=== PATIENT | male | born 1955 | race Caucasian/White ===

== ENCOUNTER → 2016-07-17 | Outpatient (CLI) | payer BC ==
[~2016-07-17] MED LIST: ATORVASTATIN CA40 MG PO; HYDROCODONE/ACE1 TA8 PO; NORCO 325 MG-51 TAB PO
== END ==
LOC: LAB 08:11
DX: R00.0 Tachycardia, unspecified (principal); E78.5 Hyperlipidemia, unspecified; R07.89 Other chest pain

== ENCOUNTER 2017-06-04 09:50 | Emergency (ER) | payer BC ==
[~2017-06-04] VITALS: Ht 193 cm; Wt 90.7 kg
--- OUTSIDE RECORDS SUMMARY | 2017-06-04 09:53 | External Medical Summary Rpt | CCD ---
Author Author [facility] Organization [facility] Address Unknown Phone Unavailable Purpose Continuity of Care Document - through 2016
--- OUTSIDE RECORDS SUMMARY | 2017-06-04 09:53 | External Medical Summary Rpt | CCD ---
Demographics Preferred Language Macedonian Marital Status Unknown Worship Affiliation Unknown Race Unknown Ethnic Group Unknown Author Author , ANDREE HIGH Address Unknown Phone Immunization No patient found.
--- OUTSIDE RECORDS SUMMARY | 2017-06-04 09:53 | External Medical Summary Rpt | CCD ---
Author Author , ANILA HIGH Address Unknown Phone [email or web address] Purpose Continuity of Care Document - through 2016 Problems Code Diagnosis DOS Provider Status K80.20 CALCULUS OF GALLBLADDER W/O CHOLECYSTIT IS W/O OBSTRUCTION
--- OUTSIDE RECORDS SUMMARY | 2017-06-04 09:53 | External Medical Summary Rpt | CCD ---
Author Author , ANILA HIGH Address Unknown Phone [email or web address] Purpose Continuity of Care Document - through 2016 Problems Code Diagnosis DOS Provider Status K80.20 CALCULUS OF GALLBLADDER W/O CHOLECYSTIT IS W/O OBSTRUCTION
--- OUTSIDE RECORDS SUMMARY | 2017-06-04 09:53 | External Medical Summary Rpt | CCD ---
Demographics Preferred Language Irish Marital Status Unknown Yarsanism Affiliation Unknown Race Unknown Ethnic Group Unknown Author Author , ANDREE HIGH Address Unknown Phone Immunization No patient found.
[2017-06-04] MEDS ORDERED: CLARITIN 10MG T10 MG PO (10:13)
[2017-06-04] MEDS ORDERED: FLONASE ALLERG9.9 ML NS (10:13)
[2017-06-04 10:14] VITALS: BP 124/79
--- NOTE | 2017-06-04 10:14 | Urgent Treatment Center Report ---
History of Present Issue Date/Time Seen by Provider 06/04/17 1009 Visit Reason Pt arrived:Walked Presenting Problem:PT C/O SINUS DRAINAGE AND CONGESTION. Location if Accident: Onset of symptoms date/time:/ or onset unknown for:MEDICAL HX UNKNOWN Have you (or family members/close friends) recently traveled outside the [place]? N If Yes, where/when: Have you had exposure to infectious disease within the past month? TB? Other? Specify: Source patient, RN notes reviewed Exam Limitations no limitations Comment 62-year-old male presents today for sinus pressure clear nasal drainage and coughing up clear sputum. Patient denies fever or body aches. Patient states started last p.m. ALLERGIES Coded Allergies: No Known Allergies (09/22/16) History Medical History General CAD? No Angina: Yes VT: No Hypertension? No Hyperlipidemia? Yes CHF? No DVT? No PE? No COPD? No Asthma? No Anemia? No GERD? Yes Gastric ulcers? No GI Bleed? No Hernia? No Thyroid Problems? No Hypothyroidism? No CVA? No Seizures? No Diabetes? No Renal Insuffiency? No UTI? No Stones? No BPH? No GB Disease: No Nephritic Syndrome? No Asplenia? No Hepatitis? No Sickle Cell Disease? No Arthritis? No Migraines? Yes Cataracts? No Glaucoma? No MRSA? No HIV? No TB? No Anxiety? No Depression? No Cancer? No More? Yes Additional hx: DYSPNEA Immunization HX DT/Tetanus Unknown Flu Refused Pneumonia Refuses Surgical Hx Previous Surgery?Y APPENDECTOMY VASECTOMY CYST REMOVAL HEART CATH Family History Family HX Diabetes Yes CAD No Hypertension Yes Hyperlipidemia Yes Cancer No TB No Social History Smoking Hx Smoker: Never Smoker Tobacco: No Packs/day N/A Alcohol Alcohol: No Review of Systems All Other Systems Reviewed and Negative ENT see HPI, nose discharge, nose congestion. Respiratory see HPI, cough Physical Exam Vital Signs Vital Signs Date Time Temp Pulse Resp B/P Pulse O2 O2 Flow FiO2 Ox Delivery Rate 06/04 0957 97.9 96 20 124/79 98 - WBC >12,000 or <4,000 or 10% bands? 2 or more SIRS Criteria Met? B/P:124/79 MAP:94 Creatinine >2.0? UA output<0.5ml/kg/hr for 2 hrs? Platelet count >100,000? Lactate >2.0mmol/1? INR >1.2 or PTT > than 60 sec? Evidence of Organ Dysfunction? Provider documented clinical suspician of infection? Sepsis Criteria Count: 2 Sepsis Risk: General Appearance normal appearance, no apparent distress Eye Exam - bilateral eye normal exam, bilateral eye PERRL, bilateral eye EOMI Ear, Nose, Throat hearing grossly normal, sinus pain/drainage, nasal congestion, pharyngeal erythema Neck normal inspection, full range of motion Respiratory Status Yes: trachea midline, chest symmetrical, non tender chest. No: respiratory distress. Lung Sounds bilateral: normal breath sounds, lungs clear. Cardiovascular normal exam, regular rate/rhythm Neurologic alert, normal exam, oriented x 3 Medical Decision Making LABS/Meds/Orders Pt receiving controlled substance in ED? No Departure Departure Time of Disposition 1011 Disposition DC Home or Self Care(routine) Clinical Impression Primary Impression: Allergic rhinitis Qualifiers: Chronicity: acute Allergic rhinitis trigger: other Allergic rhinitis seasonality: seasonal Qualified Code: J30.2 - Other seasonal allergic rhinitis Condition STABLE Patient Instructions Allergic Rhinitis, DI for Allergic Rhinitis Additional Instructions Tylenol or Motrin as needed for comfort His symptoms do not improve or get worse return or be seen in the ER Follow-up with PCP this week if no improvement Discharge Counseling Counseled pt/family regarding diagnosis, medications/RX, home care, follow up needs Prescriptions Current Visit Scripts Fluticasone Propionate (Flonase Allergy Relief) 9.9 ML NS DAILY 14 Days Loratadine (Claritin 10MG) 10 MG PO DAILY 30 Days at 1014
== END 2017-06-04 10:15 | disposition home or self-care (01) ==
LOC: UTC 09:50
DX: J30.2 Other seasonal allergic rhinitis (principal); K21.9 Gastro-esophageal reflux disease without esophagitis; E78.5 Hyperlipidemia, unspecified